=== PATIENT | female | born 2000 | race Caucasian/White ===

== ENCOUNTER 2021-11-09 14:41 | Inpatient (IN) ==
[2021-11-09] MEDS ORDERED: Famotidine 20 MG/2 ML VIAL IVP PRN (17:49)
[2021-11-09] MEDS ORDERED: *HR* Nalbuphine 10 MG/ML AMPUL IV PRN (17:49)
[2021-11-09] MEDS ORDERED: Naloxone 0.4 MG/ML INJ IVP PRN (17:49)
[2021-11-09] MEDS ORDERED: Metoclopramide 10 MG/2 ML VIAL IVP PRN (17:49)
[2021-11-09] MEDS ORDERED: Ringers Solution, Lactated 1,000 ML IVC SCH (18:00)
[2021-11-09 18:08] LABS: Basophils % 0.3 %; Eosinophils # 0.1 K/mcL (0.0-0.6); Eosinophils % 0.4 %; Hematocrit 37.5 % (35.3-44.9); Hemoglobin 12.3 g/dL (11.5-15.4); Immature Granulocytes % 0.4 % (0-4); Lymphocytes # 1.1 K/mcL (0.6-4.6); Lymphocytes % 9.9 %; Mean Corpuscular HGB Conc 32.8 g/dL (31.6-35.5); Mean Corpuscular Hemoglobin 29.6 pg (28.0-33.3); Mean Corpuscular Volume 90.4 fL (83.0-100.0); Mean Platelet Volume 12.6 fL (9.4-12.4); Monocytes # 0.7 K/mcL (0.0-1.3); Monocytes % 6.6 %; Neutrophils # 9.2 K/mcL (1.6-8.9); Platelet Count 191 K/mcL (140-400); Red Blood Count 4.15 M/mcL (3.82-4.97); Red Cell Distribution Width 13.7 % (11.5-14.5); Segmented Neutrophils % 82.4 %; White Blood Count 11.2 K/mcL (4.3-11.1)
[2021-11-09 18:16] LABS: Amphetamine Screen,Urine Negative ng/mL (Cutoff=1000); Barbiturate Screen,Urine Negative ng/mL (Cutoff=200); Benzodiazepines Screen,Urine Negative ng/mL (Cutoff=200); Cannabinoid Screen,Urine Negative ng/mL (Cutoff = 50); Cocaine Screen,Urine Negative ng/mL (Cutoff= 300); Opiate Screen,Urine Negative ng/mL (Cutoff=300); Phencyclidine Screen,Urine Negative ng/mL (Cutoff=25)
[2021-11-09] MEDS ORDERED: EPHEDrine 50 MG/ML VIAL IVP PRN (18:28)
[2021-11-09] MEDS ORDERED: Epidural Premix (fent/bupiv) 110 ML EP SCH (18:30)
[2021-11-09 18:41] LABS: Influenza A PCR Negative (Negative); Influenza B PCR Negative (Negative); Resp. Syncytial Virus PCR Negative (Negative)
[2021-11-09 18:44] LABS: SARS-CoV-2 by PCR (In House) Positive (Negative)
[2021-11-09] MEDS ORDERED: Oxytocin 20 units/ LR 1000 mL 20 UNIT/1,000 ML BAG IVC SCH (20:15)
[2021-11-09] MEDS ORDERED: Ropivacaine/PF 0.2% 20 ML VIAL ONE (20:18)
[2021-11-09] MEDS ORDERED: *HR* FentaNYL (PF) 100 MCG/2 ML VIAL ONE (20:18)
[2021-11-10] MEDS ORDERED: Oxytocin 20 units/ LR 1000 mL 20 UNIT/1,000 ML BAG IVC SCH (03:36)
[2021-11-10] MEDS ORDERED: Benzocaine/Menthol 56 GM AEROSOL SPRAY TP PRN (03:36)
[2021-11-10] MEDS ORDERED: Lanolin 7 G OINT...G. TP PRN (03:36)
[2021-11-10] MEDS ORDERED: Ondansetron ODT 4 MG TAB.RAPDIS SL PRN (03:36)
[2021-11-10] MEDS: Ibuprofen 600 MG TABLET PO SCH ×4 (04:24→22:41)
[2021-11-10] MEDS: Acetaminophen 325 MG TABLET PO SCH ×4 (04:24→22:41)
[2021-11-10] MEDS: Prenatal Vit/FA 1 EACH TABLET PO SCH (11:34)
[2021-11-10 16:53] VITALS: O2SAT 96
[2021-11-10 20:54] VITALS: BP 119/69; TEMP 98.2
[2021-11-11] MEDS: Ibuprofen 600 MG TABLET PO SCH (04:50)
[2021-11-11] MEDS: Acetaminophen 325 MG TABLET PO SCH ×2 (04:51→09:32)
[2021-11-11] MEDS: Prenatal Vit/FA 1 EACH TABLET PO SCH (09:32)
[2021-11-11 10:41] VITALS: PULSE 80
== END 2021-11-11 11:03 | disposition home or self-care (01) | DRG 560 ==
LOC: 1NENULAB → 1NENUOBS 11-10 03:37
PROVIDERS: ADMIT Registered Nurse; ATTEND Registered Nurse